=== PATIENT | female | born 1955 | race American Indian/Alaskan Native ===

== ENCOUNTER 2017-06-24 12:57 | Outpatient (CLI) | payer OTHER ==
--- NOTE | 2017-06-24 14:11 | Mammography Report ---
Bilateral mammogram with tomosynthesis: CAD study utilized. Findings: Predominance of adipose tissue bilaterally. Circumscribed 4 mm well defined benign density identified at the upper outer anterior left breast seen on tomosynethesis. No microcalcification. Normal axilla. Impression: Probably benign density. 6 month followup with mammogram and aric recommended. BI-RADS CATEGORY: 2 = Benign ACR BI-RADS MAMMOGRAPHIC CODES: 0 = Needs additional imaging evaluation; 1 = Negative; 2 = Benign; 3 = Probably benign; 4 = Suspicious; 5 = Malignant; 6 = Known biopsy-proven malignancy COMMENT: 1. Dense breast tissue, i.e., adenosis, fibrocystic changes, etc., may obscure an underlying neoplasm. 2. Approximately 10% of cancers are not detected with mammography. 3. A negative mammography report should not delay biopsy if a clinically suspicious mass is present. COMMENT: [facility].
== END 2017-06-24 12:58 | disposition home or self-care (01) ==
LOC: MAMMO 12:57
PROVIDERS: ATTEND Internal Medicine
DX: Z12.31 Encounter for screening mammogram for malignant neoplasm of breast (principal)
CPT/HCPCS: 77063; G0202; 77067

== ENCOUNTER 2021-11-21 16:19 | Emergency (ER) | payer MEDICARE, OTHER ==
--- NOTE | 2021-11-21 17:41 | Emergency Department Report ---
ED General Adult HPI - General Chief complaint: Laceration/Recheck/Suture Stated complaint: CUT RT HAND Time Seen by Provider: 11/21/21 16:37 Source: patient Mode of arrival: Ambulatory Limitations: No Limitations - History of Present Illness Initial comments: 65-year-old -[place] female patient with history of hypertension presents with complaints of right wrist laceration today. Patient states she broke a window to break into her home after locking herself out. She states she cut her arm on 1 large piece of glass. She is unsure of her last tetanus vaccination last tetanus vaccination was 2014. NKDA per patient. She denies any numbness/tingling or weakness/difficulty moving her wrist or hand Severity scale (0 -10): 7 - Related Data Previous Rx's Medication Instructions Recorded Last Taken Type Ibuprofen [Motrin] 600 mg PO Q8H PRN #30 tablet 07/28/15 Unknown Rx Sulfamethoxazole/Trimethoprim 1 each PO BID #14 tablet 07/28/15 Unknown Rx [Bactrim DS TAB] methOCARBAMOL [Robaxin TAB] 500 mg PO BID #10 tab 07/28/15 Unknown Rx traMADoL [Ultram] 50 mg PO Q6HR PRN #14 tablet 07/28/15 Unknown Rx Ibuprofen [Motrin 800 MG tab] 800 mg PO Q8HR PRN #15 tablet 11/21/21 Unknown Rx cephALEXin [Keflex] 500 mg PO Q12HR 5 Days #10 cap 11/21/21 Unknown Rx Allergies Allergy/AdvReac Type Severity Reaction Status Date / Time codeine Allergy Itching Verified 07/27/15 18:28 ED Review of Systems ROS: Stated complaint: CUT RT HAND Other details as noted in HPI Musculoskeletal: denies: arthralgia Skin: denies: change in color Neurological: denies: numbness, paresthesias ED Past Medical Hx - Past Medical History Hx Hypertension: Yes Additional medical history: left axilla boil right arm. gout - Surgical History Additional Surgical History: right shoulder cyst removal - Social History Smoking Status: Never Smoker Substance Use Type: None - Medications Home Medications: Home Medications Medication Instructions Recorded Confirmed Last Taken Type Ibuprofen [Motrin] 600 mg PO Q8H PRN #30 tablet 07/28/15 Unknown Rx Sulfamethoxazole/Trimethoprim 1 each PO BID #14 tablet 07/28/15 Unknown Rx [Bactrim DS TAB] methOCARBAMOL [Robaxin TAB] 500 mg PO BID #10 tab 07/28/15 Unknown Rx traMADoL [Ultram] 50 mg PO Q6HR PRN #14 tablet 07/28/15 Unknown Rx Ibuprofen [Motrin 800 MG tab] 800 mg PO Q8HR PRN #15 tablet 11/21/21 Unknown Rx cephALEXin [Keflex] 500 mg PO Q12HR 5 Days #10 cap 11/21/21 Unknown Rx ED Physical Exam - General Limitations: No Limitations General appearance: alert, in no apparent distress - Head Head exam: Present: atraumatic, normocephalic - Eye Eye exam: Present: normal appearance - Respiratory Respiratory exam: Absent: respiratory distress - Cardiovascular Cardiovascular Exam: Present: regular rate - Neurological Exam Neurological exam: Present: alert, oriented X3, normal gait - Psychiatric Psychiatric exam: Present: normal affect, normal mood - Skin Skin exam: Present: warm, dry, normal color. Absent: intact (Small approximately 1.5 cm laceration noted to right lateral wrist without obvious foreign bodies; patient has normal range of motion of the wrist and hand and normal sensation and perfusion of the hand), rash ED Course Vital Signs 11/21/21 11/21/21 11/21/21 16:24 17:52 18:23 Temperature 98.0 F Pulse Rate 80 61 Respiratory 18 16 Rate Blood Pressure 220/81 188/82 [Right] O2 Sat by Pulse 100 99 Oximetry - Procedure Description Procedures done: Approximately 1.5 cm laceration to right wrist irrigated thoroughly with 100 cc of normal saline. No foreign bodies noted. Laceration closed with Dermabond and Steri-Strips. Patient tolerated procedure well without any immediate complication. Minimal bleeding occurred ED Medical Decision Making - Medical Decision Making 65-year-old -[place] female patient with history of hypertension presents with complaints of right wrist laceration today. Patient states she broke a window to break into her home after locking herself out. She states she cut her arm on 1 large piece of glass. She is unsure of her last tetanus vaccination last tetanus vaccination was 2015. NKDA per patient. She denies any numbness/tingling or weakness/difficulty moving her wrist or hand Laceration repaired with Dermabond and Steri-Strips. Patient is well-appearing and stable for discharge home. Discussed importance of compliance with blood pressure medications, wound care, and signs and symptoms that should prompt immediate return to the ED with patient verbalizes understanding peer Critical care attestation.: If time is entered above; I have spent that time in minutes in the direct care of this critically ill patient, excluding procedure time. ED Disposition Clinical Impression: Laceration of right wrist Disposition: HOME / SELF CARE / HOMELESS Is pt being admited?: No Condition: Stable Instructions: Sutures, [place], or Adhesive Wound Closure, [id number] Prescriptions: cephALEXin [Keflex] 500 mg PO Q12HR 5 Days #10 cap Ibuprofen [Motrin 800 MG tab] 800 mg PO Q8HR PRN #15 tablet PRN Reason: pain Referrals: PRIMARY CARE, [Referring] - 3-5 Days (blood pressure )
[2021-11-21 18:23] VITALS: BP 188/82
== END 2021-11-21 17:52 | disposition home or self-care (01) ==
LOC: ED 16:19
DX: S61.511A Laceration without foreign body of right wrist, initial encounter (principal); W25.XXXA Contact with sharp glass, initial encounter; Y93.89 Activity, other specified; Y92.89 Other specified places as the place of occurrence of the external cause; Y99.8 Other external cause status; I10 Essential (primary) hypertension; Z91.09 Other allergy status, other than to drugs and biological substances
CPT/HCPCS: 99282